=== PATIENT | male | born 1940 | race Hispanic/Latino ===

== ENCOUNTER 2019-04-10 14:56 | Emergency (ER) | payer MEDICARE, MEDICAID ==
[2019-04-10 15:25] LABS: #Basophils 0.1 thou/uL (0.0-0.2); #Monocytes 0.5 thou/uL (0.11-0.59); #Neutrophils 9.4 thou/uL (1.40-6.50); %Eosinophils 0.2 % (0.0-10.0); %Lymphocytes 16.6 % (21.0-51.0); %Monocytes 3.8 % (0.0-10.0); %Neutrophils 78.3 % (42.0-75.0); Hemoglobin 13.8 g/dL (14.0-18.0); Mean Corpuscular HGB CONC 34.5 g/dL (32.0-36.0); Mean Corpuscular Hemoglobin 33.3 pg (27.0-31.0); Mean Corpuscular Volume 96.5 fL (78.0-98.0); Mean Platelet Volume 7.2 fL (7.4-10.4); Platelet Count 353 thou/uL (130-400); RBC Distribution Width 13.1 % (11.5-14.5); Red Blood Cell (RBC) Count 4.13 mill/uL (4.70-6.10)
[2019-04-10 15:47] LABS: ALT (SGPT) 27 U/L (8-55); AST (SGOT) 22 U/L (5-34); Albumin 4.3 g/dL (3.4-4.8); Alkaline Phosphatase 106 U/L (40-150); Anion Gap 14 mmol/L (10-20); BUN (Urea Nitrogen) 19 mg/dL (8.4-25.7); Bilirubin, Total 0.8 mg/dL (0.2-1.2); Calc. Creatinine Clearance 0 mL/min (70-130); Calcium 9.4 mg/dL (7.8-10.44); Carbon Dioxide 23 mmol/L (23-31); Chloride 103 mmol/L (98-107); Estimated GFR-MDRD 52; Globulin 3.3 g/dL (2.4-3.5); Glucose 112 mg/dL (83-110); Lipase 52 U/L (8-78); Potassium 4.1 mmol/L (3.5-5.1); Protein, Total 7.6 g/dL (5.8-8.1); Sodium 136 mmol/L (136-145)
[2019-04-10 16:30] LABS: Bilirubin Negative (Negative); Blood, Urine Negative (Negative); Clarity Clear (Clear); Glucose, Urine (Dipstick) Normal (Negative); Leukocyte Negative Leu/uL (Negative); Nitrite Negative (Negative); Protein, Urine (Dipstick) Negative (Neg-Trace); Urobilinogen Normal mg/dL (Less than 2)
[2019-04-10] MEDS ORDERED: Ondansetron PF 4 MG/2 ML Vial ONE (16:53)
[2019-04-10] MEDS ORDERED: Morphine 4 MG/ML VIAL ONE (16:53)
--- NOTE | 2019-04-10 17:40 | ULT ---
GALLBLADDER ULTRASOUND: HISTORY: Right upper quadrant pain. FINDINGS: Real-time imaging of the right upper quadrant shows a normal appearing gallbladder. The common duct is 3 to 4 mm. The visualized liver parenchyma is unremarkable. Portions of the left lobe are obscur ed. The right kidney is normal in size and not obstructed. The pancreas is totally obscured by bowel gas . IMPRESSION: Unremarkable right upper quadrant ultrasound. POS: [facility]
--- NOTE | 2019-04-10 18:55 | CT ---
CT ABDOMEN AND PELVIS WITH IV CONTRAST: 04/10/2019 PROVIDED CLINICAL HISTORY: Abdominal pain. Recent ERCP. FINDINGS: The visualized lung bases are free of significant opacity. There is a moderate hiatal hernia. Gas d ensity is noted within the cystic duct, as well as a small amount within the gallbladder lumen, presu mably on the basis of recent instrumentation. The liver, spleen, pancreas, kidneys, and adrenal glands demonstrate no significant abnormality. There is no bowel dilatation, inflammatory fat stranding, free fluid, or free air apparent. There is a 3.7 cm infrarenal abdominal aortic aneurysm. Scattered atherosclerotic vascular calcifications ar e seen. The osseous structures demonstrate no concerning lytic or blastic lesions. The appendix appears normal. IMPRESSION: 1. Gas within the biliary system, presumably on the basis of recent instrumentation. 2. A 3.7 cm infrarenal abdominal aortic aneurysm. POS: [facility]
== END 2019-04-10 20:11 | disposition home or self-care (01) ==
LOC: ERS 14:56
DX: I71.4 Abdominal aortic aneurysm, without rupture (principal); R11.2 Nausea with vomiting, unspecified; E11.9 Type 2 diabetes mellitus without complications; E78.00 Pure hypercholesterolemia, unspecified; Z79.899 Other long term (current) drug therapy; Z79.84 Long term (current) use of oral hypoglycemic drugs
CPT/HCPCS: 36416; 74177; 76705; 80053; 81003; 83690; 85025; 96361; 96374; 96375; J2270; J2405